=== PATIENT | male | born 1990 | race Caucasian/White ===

== ENCOUNTER → 2017-09-27 15:00 | Outpatient (CLI) | payer BC, SELFPAY ==
--- NOTE | 2017-09-27 15:00 | DT_ITS ---
This patient was seen during an EMR downtime September 26, 2017 - October 03, 2017. This patient may have a combination of paper and electronic documentation or all paper documentation. All documentation is viewable within the e-chart portion of [employer] for each patient visit.
[2017-10-02 08:32] LABS: BUN 8 mg/dL (7-18); Glucose 84 mg/dL (74-106)
[2017-10-02 08:33] LABS: Anion Gap 8 (5-15); BUN/Creat Ratio 8.2 RATIO (10-20); Calcium,Total 8.9 mg/dL (8.5-10.1); Chloride 107 mmol/L (98-107); Creatinine, Serum 0.97 mg/dL (0.70-1.30); EST Glomerular Filtration Rate 99 mL/min (>60); Est Glom Filt Rate - Afr Amer 120 mL/min (>60); Sodium Level 141 mmol/L (136-145)
[2017-10-03 12:51] LABS: HIV - WCH Nonreactive (Nonreactive)
== END ==
LOC: MTLAB 10-01 08:39 → MFPLAB 10-01 17:13
PROVIDERS: Family Provider Family Medicine; PCP Family Medicine; Visit Provider Family Medicine
DX: Z72.51 High risk heterosexual behavior (principal)
CPT/HCPCS: 36415; 80048; 86703

== ENCOUNTER 2018-11-14 19:49 | Emergency (ER) | payer BC, SELFPAY ==
[2018-11-14 19:55] VITALS: BP 136/98; PULSE 67; RESP 15; TEMP 36.4; O2SAT 98; BMI 22.4
--- NOTE | 2018-11-14 20:07 | EKG12_ITS ---
Test Reason : CP Blood Pressure : / mmHG Vent. Rate : 063 BPM Atrial Rate : 063 BPM P-R Int : 122 ms QRS Dur : 082 ms QT Int : 376 ms P-R-T Axes : 036 043 039 degrees QTc Int : 384 ms Normal sinus rhythm Normal ECG Confirmed by MAIRA RUIZ ([id number]), videotape editor GAGAN MARQUEZ ([id number]) on 11/16/2018 10:12:39 AM Referred By: DC Confirmed By:MAIRA RUIZ
--- NOTE | 2018-11-14 20:08 | ED.VIS.CHEST ---
History of Present Illness Chief Complaint: Chest Pain Informant: Patient, Parent Onset: Hours - 1 Activity at onset: Rest - lying supine Timing: Continuous Quality: - - pt states it is not pain, and is difficult to describe, but is discomfort. Throughout torso. Not sharp/tearing. No sensation of impending doom. Location: - - entire chest. Radiates into entire back and both shoulders and neck/throat. Current Severity: Moderate Maximum Severity: Moderate Worsened By: Nothing Relieved By: Nothing - including sitting up Associated Symptoms: Lightheadedness - mild, no near-syncope. Negative for: Nausea, Vomiting, Diaphoresis, Dyspnea, Cough, Fever, Palpitations Narrative: Patient's mother took him to the fire department where they performed an EKG, which I also reviewed and is normal. Subsequently, he was brought to the emergency department. He has no known medical problems and has had no pain or swelling in his legs recently. No recent hospitalization, travel, surgery, or other reason for mobilization. No history of DVT or PE. Mom and dad both have had prior cardiac ablations but have not been diagnosed with coronary disease. Prior Similar Symptoms: No Recent Illness/Hospitalization: No CVD Risk Factors: Negative for: Hypertension, Diabetes, Hypercholesterolemia, Family History 1' </=55, Smoking PE Risk Factors: Negative for: Recent Travel/Surgery, Recenet Immobilization, Prior DVT or PE, Cancer, OCP + Smoking + >/=35 TAD Risk Factors: Negative for: Marfan's Syndrome, Hypertension, Family History Past Medical History - Allergies and Home Meds Allergies/Adverse Reactions: Allergies No Known Allergies Allergy (Verified 11/14/18 19:55) Primary Care Physician: Kristan Reyna MD [Primary Care Provider] - Past Medical History: None Surgical History: no surgical history Lives: With Family Smoking Status: Never smoker Drugs: None Review of Systems General: Denies: Chills, Fever, Sweats Eyes: Denies: Visual changes - bilaterally, Diplopia ENT: Denies: Rhinorrhea, Sore throat Cardiovascular: Reports: Chest pain. Denies: Palpitations, Heart racing Respiratory: Denies: Dyspnea, Cough, Dyspnea on exertion Gastrointestinal: Denies: Abdominal pain, Nausea, Vomiting, Diarrhea, Melena, Hematochezia Genitourinary: Denies: Dysuria, Hematuria, Frequency Musculoskeletal: Reports: Back pain - Upper bilateral. Denies: Swelling, Extremity Pain Skin: Denies: Rash, Wounds Neurological: Denies: Headache, Weakness, Numbness Physical Exam Vital Signs/Narrative: Vital Signs Temp Pulse Resp BP Pulse Ox 11/14/18 19:55 97.5 F L 67 15 136/98 H 98 Inital Vital Signs reviewed: Yes General: Well nourished, Well developed, No Acute Distress - Well-appearing, conversive, pleasant, comfortable Head: Normocephalic, Atraumatic Eyes: Perrl, EOMI ENT: Moist mucous membranes, No rhinorrhea Neck: Supple, Nontender, No JVD Cardiovascular: Regular rate, Regular rhythm, No murmurs, Normal S1, Normal S2, - - Bilateral 2+/4 symmetric radial pulses. Negative for: Tachycardia Respiratory: No distress, CTA bilaterally, Chest nontender Abdomen: Soft, Nontender, Nondistended, Normal bowel sounds Back: Nontender, Normal Inspection Extremities: Nontender, No edema. Negative for: Calf Tenderness Skin: Normal color, No rash, No Trauma Neurological: Alert, Oriented x3, Cranial nerves II-XII grossly intact, Normal Strength, Normal Sensation, Normal Gait Psychological: Normal affect, Normal Mood Diagnostic/Tx/Re-eval Clinical Impression(s) from Imaging Studies Chest X-Ray 11/14/18 20:25 IMPRESSION: Normal x-ray examination of the chest. Electronically Signed: Anil Calderon MD at 20:42 EDT , Service support , - Rhythm Strip Rhythm Strip: Sinus Rhythm Rate: 63 Ectopy: None - EKG Initial EKG Interpretation: Sinus Rhythm, No Acute Injury Pattern Prior: No Prior - But unchanged and normal compared with EMS EKG prior to arrival Treatment: GI Cocktail Repeat Eval: Pain Free - But has a different, milder discomfort left chest, nonpleuritic. Feels like my lung is full of mucus. - Medical Decision Making Patient states that the GI cocktail we gave him quickly made all of his discomfort go away. He states he has some vague discomfort in his left chest but nowhere else now. My torso feels better. His EKG is normal, his PERC score is 0, ruling out pulmonary embolus without further ancillary testing needed, and I feel this is likely esophageal in etiology especially given that he was lying supine when the symptoms started. Advised 14-day course of either H2 yehuda or PPI, 1 given here, and advised to follow-up and he is comfortable with this plan. ED Disposition - Plan for ED Patient: Disposition: Home or Assisted Living Diagnosis: Non-cardiac chest pain Instructions: CHEST PAIN, NonCardiac Referrals: Kristan Reyna MD [Primary Care Provider] - 1 Week if not improving Additional Instructions: Take either Zantac 1 pill twice daily, or Prilosec/Prevacid/Nexium 1 pill daily, for 14 days and reevaluate.
[2018-11-14] MEDS: Mag Hydrox/Al Hydrox/Simeth 30 ML UDC PO (20:21)
--- NOTE | 2018-11-14 20:25 | RAD_ITS ---
STUDY: X-RAY CHEST REASON FOR EXAM: Male, 28 years old. Chest pain TECHNIQUE: PA and lateral views of the chest. COMPARISON: None. FINDINGS: There are monitoring devices. The lungs are clear and expanded. There is no demonstrated pleural abnormality. Normal size heart. Normal mediastinum and ray. Normal visualized pulmonary arteries. Normal visualized aortic arch and descending thoracic aorta. Normal visualized thoracic spine. Normal visualized ribs, clavicles, and shoulders. There is no demonstrated abnormality of the visualized soft tissue structures of the upper abdomen. RAD/Chest PA and Lateral IMPRESSION: Normal x-ray examination of the chest. Electronically Signed: Anil Calderon MD at 20:42 EDT , Service support ,
[2018-11-14 21:08] VITALS: PULSE 70; RESP 18; O2SAT 100
[2018-11-14] MEDS: Pantoprazole Sodium 40 MG Tablet PO (21:37)
[2018-11-14 21:38] VITALS: BP 136/70; PULSE 82; RESP 18; O2SAT 100
== END 2018-11-14 21:39 | disposition home or self-care (01) ==
PROVIDERS: Emergency Provider Emergency Medicine; Family Provider Family Medicine; PCP Family Medicine
DX: R07.89 Other chest pain (principal)
CPT/HCPCS: 71046; 93005; 99284; A4216

== ENCOUNTER 2019-04-15 21:06 | Emergency (ER) | payer OTHER, BC, SELFPAY ==
[2019-04-15 21:07] VITALS: BP 123/83; PULSE 92; RESP 13; TEMP 36.6; O2SAT 97; BMI 23.2
--- NOTE | 2019-04-15 21:38 | ED.DCSUM_ITS ---
- ER Visit Summary Date of Service: 04/15/19 Chief Complaint: Left hand laceration History of Present Illness: The patient is a 28 M who presents with laceration to his left hand that occurred today while at work. Patient was cleaning a glass that had a large chip out of it. Patient cut his hand on the edge of the glass. Patient does not believe that there is any glass in his wound. Patient states that the fragment of glass that was missing from the glass was found and it is complete. Patient denies any paresthesias or weakness. Patient states the pain is sharp and is worse with certain movements. Patient states his last tetanus was between 5 and 10 years ago. Physical Examination: Vital signs are stable. Patient is afebrile. Patient is in no acute distress. Skin is warm dry. There is a 1 cm full-thickness linear laceration over the dorsal aspect of the MP joint of the left fifth finger. There are no foreign bodies visualized. There are no tendon lacerations noted. There is full range of motion. There is no laxity appreciated. Sensation was intact light touch in all digits. Capillary refill was less than 2 seconds in all digits. Strength is 5/5 in flexion and extension of the MP, PIP, and DIP joints. Emergency Department Course and Treatment: The wound was cleaned and anesthetized 1% plain lidocaine locally. The wound was irrigated with copious amounts of normal saline. The wound was explored through full range of motion. There were no tendon lacerations. There were no foreign bodies noted. The wound was closed with 2 simple interrupted #5-0 nylon sutures under sterile technique. Bacitracin dressing was applied. Patient tolerated procedure well. Patient was instructed to follow-up with his primary care physician or [facility] in 5 to 7 days for wound recheck and suture removal. Patient understood and was agreeable with the plan. All questions were answered. Disposition: Discharge home Impression: 1. Left hand laceration This note was generated with [employer] dictation software. It may contain incorrect words, spelling, and punctuation that were not noted in review of the chart prior to signing ED Disposition - Plan for ED Patient: Disposition: Home or Assisted Living Diagnosis: Laceration of left hand Instructions: LACERATION, Hand Referrals: Kristan Reyna MD [Primary Care Provider] - 7 Days for suture removal
--- NOTE | 2019-04-15 21:51 | ED.RN ---
ZOHREH FROM [facility] AWARE OF THE NEEDED TEST
[2019-04-15 22:38] VITALS: BP 122/61; PULSE 60; RESP 15; O2SAT 95
[2019-04-15] MEDS: BACITRACIN 15 GM Tube 1 APPLIC TOPICAL (22:55)
== END 2019-04-15 23:00 | disposition home or self-care (01) ==
PROVIDERS: Emergency Provider Emergency Medicine; Family Provider Family Medicine; PCP Family Medicine
DX: S61.412A Laceration without foreign body of left hand, initial encounter (principal); W25.XXXA Contact with sharp glass, initial encounter; Y93.89 Activity, other specified; Y92.89 Other specified places as the place of occurrence of the external cause; Y99.0 Civilian activity done for income or pay
CPT/HCPCS: 12001; 99284

== ENCOUNTER 2021-03-14 14:41 | Emergency (ER) | payer BC, SELFPAY ==
[2021-03-14 14:42] VITALS: BP 116/76; PULSE 86; RESP 16; TEMP 36.6; O2SAT 99; BMI 23.1
--- NOTE | 2021-03-14 15:08 | RAD_ITS ---
STUDY: X-RAY - LEFT FOOT CLINICAL: Male, 30 years old. Injury TECHNIQUE: 3 view(s) of the foot. COMPARISON: None. FINDINGS: Normal talus, calcaneus, and tarsal bones. Normal visualized subtalar, talonavicular, calcaneocuboid, tarsal and tarsometatarsal articulations. There is a comminuted intra-articular fracture at the base of the fifth metatarsal. Normal metatarsophalangeal joint of the great toe. Normal tibial and fibular sesamoid bones. Normal interphalangeal joint of the great toe. Normal phalanges of the great toe. Normal second through fifth metatarsophalangeal joints. Normal interphalangeal joints and phalanges of the lesser toes. The soft tissue structures are unremarkable. RAD/Foot min 3 Views IMPRESSION: Fifth metatarsal fracture. Electronically Signed: Deyanira Leavitt MD at 17:22 EST Tel , Service support ,
--- NOTE | 2021-03-14 15:08 | RAD_ITS ---
STUDY: X-RAY - LEFT ANKLE REASON FOR EXAM: Male, 30 years old. Fall TECHNIQUE: 3 view(s) of the ankle. COMPARISON: None. FINDINGS: Normal visualized distal tibia and fibula. Normal medial and lateral malleoli. Normal tibiotalar articulation and ankle mortise. Normal visualized talus and calcaneus. The visualized subtalar, talonavicular, calcaneocuboid and tarsal articulations are normal. There is a comminuted fracture at the base of the fifth metatarsal. The soft tissue structures are unremarkable. RAD/Ankle min 3 Views IMPRESSION: Fifth metatarsal fracture. Electronically Signed: Deyanira Leavitt MD at 17:21 EST Tel , Service support ,
--- NOTE | 2021-03-14 15:18 | EX.ED.DYSGE1 ---
HPI History of Present Illness Chief Complaint: Lower Extremity Injury Informant: patient Narrative Narrative: 30-year-old male presenting with left ankle and foot pain. Patient states he was walking his dog this morning when the dog saw another dog and caused him to fall. He did not hit his head or lose consciousness. He is able to ambulate with pain. He has tried ice at home. Denies other injuries. Prior similar symptoms: No Recent Illness/Hospitalization: No PFSH PFSH Home Medications amoxicillin 875 mg-potassium clavulanate 125 mg tablet 1 tab PO Q12H 10 Days #20 tab 03/10/21 [Rx Last Taken Unknown] Allergy/AdvReac Type Severity Reaction Status Date / Time No Known Allergies Allergy Verified 03/14/21 15:04 Surgical History History of tonsillectomy Social History Smoking Status: Never smoker alcohol intake: never ROS ROS ED Constitutional Constitutional ED: Denies fever(s) Musculoskeletal Musculoskeletal: Reports other Details: left ankle and foot pain EXAM Physical Exam Const Vital Signs: 03/14/21 14:42 Temperature 97.9 F Temperature Source Temporal Pulse Rate 86 Respiratory Rate 16 Blood Pressure 116/76 Blood Pressure Mean 89 Pulse Ox 99 Oxygen Delivery Method Room Air Positive well nourished and well developed General Appearance ED: well developed HEENT Reports normocephalic and head/scalp atraumatic Eyes PERRL and EOMs intact bilaterally Neck supple General: Negative for tenderness Chest Wall inspection of chest normal Resp normal respiratory effort no CVA tenderness Extremity Extremity Narrative: tenderness left midfoot with swelling. Mild tenderness lateral left ankle. No proximal fibula tenderness. No Achilles tendon tenderness. Normal pulses. Neuro oriented x3 Sensorium / Orientation: alert Psych mental status grossly normal MDM MDM MDM Narrative Medical decision making narrative: Left foot and ankle x-ray read by myself and radiology show fifth metatarsal fracture. Patient was given boot orthosis and advised nonweightbearing. He states he has crutches at home. He declined pain medication. Advised to follow-up with orthopedics. Advised return to the ED for worsening complaints. Radiography Diagnostic Testing: Clinical Impression(s) from Imaging Studies Ankle X-Ray 03/14/21 15:08 IMPRESSION: Fifth metatarsal fracture. Electronically Signed: Deyanira Leavitt MD at 17:21 EST Tel , Service support , Foot X-Ray 03/14/21 15:08 IMPRESSION: Fifth metatarsal fracture. Electronically Signed: Deyanira Leavitt MD at 17:22 EST Tel , Service support , Discharge Plan Triage Chief Complaint: Lower Extremity Injury ED Provider: Felicita Galvin Dx/Rx/DC Orders Clinical Impression: Fracture of fifth metatarsal bone of left foot Instructions: ED Fracture, Foot Prescriptions: No Action amoxicillin-pot clavulanate [Augmentin] 875-125 mg tablet 1 tab PO Q12H 10 Days Qty: 20 RF: 0 Primary Care Provider: Kristan Reyna Referrals: Kristan Reyna MD [Primary Care Provider] - Chriss Salmon DO [STAFF PHYSICIAN] - Disposition Disposition: Home, Self Care
== END 2021-03-14 18:04 | disposition home or self-care (01) ==
PROVIDERS: Emergency Provider Emergency Medicine; PCP Family Medicine
DX: S92.352A Displaced fracture of fifth metatarsal bone, left foot, initial encounter for closed fracture (principal); Y93.01 Activity, walking, marching and hiking; W19.XXXA Unspecified fall, initial encounter
CPT/HCPCS: 73610; 73630; 99283